=== PATIENT | female | born 1995 | race Caucasian/White ===

== ENCOUNTER 2016-09-05 08:55 | Emergency (ER) | payer MEDICAID ==
[~2016-09-05] VITALS: Ht 165.1 cm; Wt 74.8 kg
[2016-09-05 09:28] VITALS: BP 133/76
== END 2016-09-05 10:13 | disposition home or self-care (01) ==
LOC: ER 08:55
DX: S39.012A Strain of muscle, fascia and tendon of lower back, initial encounter (principal); Z88.0 Allergy status to penicillin; N83.209 Unspecified ovarian cyst, unspecified side
CPT/HCPCS: 72131